=== PATIENT | male | born 1960 | race Caucasian/White ===

== ENCOUNTER 2021-04-09 12:35 | Day surgery (SDC) | payer OTHER ==
[2021-04-08 12:38] LABS: BASOPHILS # (AUTO) 0.1 X10'3 (0-0.2); BASOPHILS % (AUTO) 1.1 % (0-1); EOSINOPHILS # (AUTO) 0.1 X10'3 (0-0.9); EOSINOPHILS % (AUTO) 2.4 % (0-6); LYMPHOCYTES # (AUTO) 1.8 X10'3 (1.1-4.8); LYMPHOCYTES % (AUTO) 29.6 % (21-51); MEAN CORPUSCULAR HEMOGLOBIN 30.6 PG (27.0-31.0); MEAN CORPUSCULAR HGB CONC 35.1 g/dL (33.0-36.5); MEAN CORPUSCULAR VOLUME 87.2 FL (78-98); MEAN PLATELET VOLUME 7.9 FL (7.4-10.4); MONOCYTES # (AUTO) 0.4 X10'3 (0-0.9); MONOCYTES % (AUTO) 7.4 % (2-12); NEUTROPHILS # (AUTO) 3.6 X10'3 (1.8-7.7); NEUTROPHILS % (AUTO) 59.5 % (42-75); PRE OP HEMATOCRIT 42.6 % (42.0-52.0); PRE OP PLATELET COUNT 185 X10'3 (140-440); RED BLOOD COUNT 4.89 X10'6 (4.70-6.10); RED CELL DISTRIBUTION WIDTH 13.4 % (11.5-14.5)
[2021-04-08 12:49] LABS: PRE OP PROTIME 10.6 SECONDS (9.0-12.0)
[2021-04-08 12:58] LABS: ALBUMIN 3.7 G/DL (3.4-5.0); ALKALINE PHOSPHATASE 92 IU/L (46-116); BLOOD UREA NITROGEN 15 MG/DL (7-18); BUN/CREATININE RATIO 19.5 (5.4-32.0); CALCIUM 8.6 MG/DL (8.5-10.1); CHLORIDE 103 MMOL/L (99-107); CREATININE 0.77 MG/DL (0.60-1.10); PRE OP ALT 38 U/L (30-65); PRE OP ANION GAP 10 (8-16); PRE OP AST 26 U/L (10-37); PRE OP BILIRUB, TOTAL 1.8 MG/DL (0.0-1.0); PRE OP GLUCOSE 95 MG/DL (70-104); PRE OP SODIUM 139 MMOL/L (135-145); TOTAL CARBON DIOXIDE 26.4 MMOL/L (24-32); TOTAL PROTEIN 7.5 G/DL (6.4-8.2); eGFR > 90 ML/MIN
[~2021-04-09] VITALS: Ht 185.4 cm; Wt 117.7 kg
[2021-04-09] VITALS (15 sets, daily range): BP systolic 102–166; BP diastolic 61–96
[~2021-04-09 12:35] MED LIST: ATOR10TA87 PO; CERT400S SUBCUT; CETI-90 PO; CETY454C TP; CHOL400T57 PO; CITA20TA28 PO; DOCU100C40 PO; FOLI0.4T14 PO; MULT-1085 PO; PHEN1SUP96 PR; PSYL0.4C2 PO; VITA1TAB37 PO; famotidine 20mg tablet PO ONE; mupirocin 2% nasal ointment 1gm UD NS ONE; ringers solution, lacted 1,000 ML IV SCH
[2021-04-09] MEDS ORDERED: Cefazolin 2GM/100ML NS IVPB 100 ML IV ONE (13:55)
[2021-04-09] MEDS ORDERED: magnesium hydroxide 30ml (MOM) UD suspension PO PRN (14:00)
[2021-04-09] MEDS ORDERED: ondansetron/PF 4mg/2ml inj IV PRN ×2 (14:00→16:30)
[2021-04-09] MEDS ORDERED: diphenhydrAMINE 25mg capsule PO PRN ×2 (14:00)
[2021-04-09] MEDS ORDERED: HYDROmorphone inj. 0.5 MG/0.5 ML DISP.SYRIN IV PRN (14:00)
[2021-04-09] MEDS ORDERED: HYDROmorphone 1 mg/ml syringe IV PRN (14:00)
[2021-04-09] MEDS ORDERED: tranexamic acid inj. 1,100 MG in normal saline 100ml IV soln 100 ML IV ONE (14:00)
[2021-04-09] MEDS ORDERED: ceFAZolin 2gm in dextrose, iso 50 ML IV ONE (14:20)
[2021-04-09] MEDS ORDERED: fentaNYL/PF 50MCG/1 ML 2ML syringe ONE (15:49)
[2021-04-09] MEDS ORDERED: MIDAZolam 1 MG/ML 5ML VIAL ONE (15:59)
[2021-04-09] MEDS ORDERED: ketorolac trometh. 30mg/ml inj. ONE (16:03)
[2021-04-09] MEDS ORDERED: epiNEPHrine 1 mg/ml inj ONE (16:03)
[2021-04-09] MEDS ORDERED: vancomycin 1,000mg inj ONE (16:04)
[2021-04-09] MEDS ORDERED: ROPIVAcaine 0.5% (5mg/ml) 30ml vial ONE (16:04)
[2021-04-09] MEDS ORDERED: propofol inj 20 ML IV ONE ×3 (16:10)
[2021-04-09] MEDS ORDERED: ePHEDrine 50MG/ML INJ. ONE (16:19)
[2021-04-09] MEDS ORDERED: cloNIDine hcl/PF 100mcg/ml inj IJ ONE (16:22)
[2021-04-09] MEDS ORDERED: HYDROmorphone/PF 0.2 MG/ML SYRINGE IV PRN ×2 (16:30)
[2021-04-09] MEDS ORDERED: acetaminophen 1,000mg/100ml IV 100 ML IV PRN (16:30)
[2021-04-09] MEDS ORDERED: proCHLORperazine 10 MG/2 ml inj IV PRN (16:30)
[2021-04-09] MEDS ORDERED: morphine 4 MG/ML inj SYRINge IV PRN (16:30)
[2021-04-09] MEDS ORDERED: morphine 2 MG/ML inj. syringe IV PRN (16:30)
[2021-04-09] MEDS ORDERED: labetalol 20mg/4ml (5mg/ml) syringe IV PRN (16:30)
[2021-04-09] MEDS ORDERED: ringers solution, lacted 1,000 ML IV SCH (16:30)
[2021-04-09] MEDS ORDERED: hydrALAZINE 20mg/ml inj. IV PRN (16:30)
[2021-04-09] MEDS ORDERED: ROPIVAcaine 0.2% (10 MG/5 ML) BOLUS INJECTION ADDCANAL PRN (16:30)
[2021-04-09] MEDS ORDERED: ROPIVAcaine 0.2%/PF PUMP/bolus 545 ML ADDCANAL SCH (16:30)
--- NOTE | 2021-04-09 17:43 | NUR ---
Received from OR via , accompanied by Anesthesiologist DR BECERRA and report given by Anesthesiolgist. AWAKENS TO VOICE. VITALS STABLE. DRESSING DI. CATRINA PAIN. SENSATION AT MID ABD.
--- NOTE | 2021-04-09 18:43 | NUR ---
Report called to receiving nurse. Transferred via BED Belongings . Special Issues communicated to receiving nurse. AWAKE AND ORIENTED. VITALS STABLE. DRESSING DI. CATRINA PAIN. TO SURGICAL RM 246A AT THIS TIME.
--- NOTE | 2021-04-09 19:05 | NUR ---
PATIENT ADMITTED TO ROOM 346A FROM RECOVERY ROOM AFTER LEFT TOTAL KNEE WAS DONE BY DR. OLSON. PLACED COMFORTABLE IN BED. POST OP VITAL SIGNS MONITORED.
[2021-04-09] MEDS: potassium cl 20mEq in 1/2 NS 1,000 ML IV SCH (19:29)
[2021-04-09] MEDS ORDERED: oxyCODONE/APAP 10/325mg tablet PO PRN (20:00)
[2021-04-09] MEDS ORDERED: bisacodyl 10mg suppository rectal RC PRN (20:00)
[2021-04-09] MEDS: oxyCODONE/APAP 10/325mg tablet PO PRN (20:26)
[2021-04-09] MEDS: ascorbic acid 500mg tablet PO SCH (20:27)
[2021-04-09] MEDS: gabapentin 300mg capsule PO SCH (20:27)
[2021-04-09] MEDS ORDERED: docusate sod 100mg capsule PO SCH (21:00)
[2021-04-09] MEDS ORDERED: sennosides 8.6mg tablet PO SCH (21:00)
[2021-04-10] VITALS: BP 100/73
[2021-04-10] MEDS: ceFAZolin 2gm in dextrose, iso 50 ML IV SCH ×2 (00:23→08:26)
[2021-04-10 04:00] VITALS: BP 125/65
[2021-04-10] MEDS: potassium cl 20mEq in 1/2 NS 1,000 ML IV SCH (04:20)
[2021-04-10] MEDS: oxyCODONE/APAP 10/325mg tablet PO PRN ×2 (05:35→12:12)
--- NOTE | 2021-04-10 06:20 | NUR ---
Problems reprioritized. Patient report given, questions answered & plan of care reviewed with MARY ROSS.
--- NOTE | 2021-04-10 06:41 | NUR ---
Patient in room [facility] 346. I have received report from VANDANA Healy and had the opportunity to ask questions and assume patient care.
[2021-04-10 06:50] LABS: BASOPHILS % (AUTO) 0.5 % (0-1); EOSINOPHILS # (AUTO) 0.1 X10'3 (0-0.9); EOSINOPHILS % (AUTO) 1.1 % (0-6); HEMATOCRIT 37.8 % (42.0-52.0); HEMOGLOBIN 13.2 g/dl (14.0-17.9); LYMPHOCYTES % (AUTO) 12.4 % (21-51); MEAN CORPUSCULAR HEMOGLOBIN 30.6 PG (27.0-31.0); MEAN CORPUSCULAR HGB CONC 34.8 g/dL (33.0-36.5); MEAN PLATELET VOLUME 8.5 FL (7.4-10.4); MONOCYTES # (AUTO) 0.8 X10'3 (0-0.9); MONOCYTES % (AUTO) 9.4 % (2-12); NEUTROPHILS # (AUTO) 6.5 X10'3 (1.8-7.7); NEUTROPHILS % (AUTO) 76.6 % (42-75); PLATELET COUNT 173 X10'3 (140-440); RED BLOOD COUNT 4.29 X10'6 (4.70-6.10); RED CELL DISTRIBUTION WIDTH 13.5 % (11.5-14.5); WHITE BLOOD COUNT 8.5 X10'3 (4.5-11.0)
[2021-04-10 06:54] LABS: ANION GAP 9 (8-16); CHLORIDE 102 MMOL/L (99-107); POTASSIUM 4.1 MMOL/L (3.5-5.1); SODIUM 138 MMOL/L (135-145); TOTAL CARBON DIOXIDE 27.2 MMOL/L (24-32)
[2021-04-10 07:00] VITALS: BP 112/66
[2021-04-10] MEDS ORDERED: vitamin B comp w/Vit. C tab 1 TAB TABLET PO SCH (08:00)
[2021-04-10] MEDS ORDERED: multivitamins, therapeutics tablet PO SCH (08:00)
[2021-04-10] MEDS ORDERED: cetirizine 10mg tablet PO SCH (08:00)
[2021-04-10] MEDS ORDERED: citalopram 20mg tablet PO SCH (08:00)
[2021-04-10] MEDS: ascorbic acid 500mg tablet PO SCH (08:27)
[2021-04-10] MEDS: gabapentin 300mg capsule PO SCH ×2 (08:28→14:15)
[2021-04-10] MEDS ORDERED: aspirin 325mg tablet PO SCH (08:30)
[2021-04-10 12:00] VITALS: BP 116/64
--- NOTE | 2021-04-10 14:53 | NUR ---
Pt discharged to home with all belongings, in private vehicle, accompanied by . Discharge instructions and medications reviewed. 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 Pt instructed to follow up with Dr Mathis and to contact his office with any concerns. Pt instructed to remove HAROON dressing with battery pack dies, as well as ONQ ball when empty. Pt and state understanding and willingness to comply with all discharge instructions. IV DC'd, cannula intact. Pt escorted to front lobby via wheelchair by student RN.
[2021-04-10] MEDS ORDERED: acetaminophen 325mg tablet PO PRN (20:00)
[2021-04-10] MEDS ORDERED: celeCOXIB 100mg capsule PO SCH (20:00)
== END 2021-04-10 14:53 | disposition home or self-care (01) ==
LOC: PAS 12:35 → UNDOADMIN 12:37 → PAS IN 12:37 → EDSTATUS 15:30 → SUR 3N 19:10 → PAS 04-10 14:53
PROVIDERS: ATTEND Orthopaedic Surgery
DX: M17.12 Unilateral primary osteoarthritis, left knee (principal); M16.12 Unilateral primary osteoarthritis, left hip; G47.33 Obstructive sleep apnea (adult) (pediatric); F41.9 Anxiety disorder, unspecified; L40.50 Arthropathic psoriasis, unspecified; G89.18 Other acute postprocedural pain; Z87.891 Personal history of nicotine dependence; Z72.89 Other problems related to lifestyle; Z96.642 Presence of left artificial hip joint; Z91.030 Bee allergy status; Z91.013 Allergy to seafood; Z79.899 Other long term (current) drug therapy; Z79.01 Long term (current) use of anticoagulants
CPT/HCPCS: 27447; 36415; 64448; 73560; 76937; 80051; 80053; 82948; 85025; 85610; 85730; 86885; 86900; 86901; 87081; 87635; 97110; 97116; 97162; 97530; C1713; C1776; C9803; J0171; J0735; J1885; J2250; J2704; J2795; J3010; J3370; J7120; Z7506; Z7508; Z7512; 76942; A4215; A6449; A7000; G0378; J3480

== ENCOUNTER 2021-09-21 09:08 | Inpatient (IN) | payer OTHER ==
[2021-09-15 16:40] LABS: ALBUMIN 3.7 G/DL (3.4-5.0); ALKALINE PHOSPHATASE 91 IU/L (46-116); BLOOD UREA NITROGEN 19 MG/DL (7-18); BUN/CREATININE RATIO 26.4 (5.4-32.0); CALCIUM 8.6 MG/DL (8.5-10.1); CHLORIDE 103 MMOL/L (99-107); CREATININE 0.72 MG/DL (0.60-1.10); PRE OP ALT 37 U/L (30-65); PRE OP ANION GAP 11 (8-16); PRE OP AST 27 U/L (10-37); PRE OP BILIRUB, TOTAL 1.3 MG/DL (0.0-1.0); PRE OP GLUCOSE 92 MG/DL (70-104); PRE OP POTASSIUM 3.8 MMOL/L (3.4-5.1); PRE OP SODIUM 139 MMOL/L (135-145); TOTAL CARBON DIOXIDE 24.6 MMOL/L (24-32); TOTAL PROTEIN 7.5 G/DL (6.4-8.2); eGFR > 90 ML/MIN
[2021-09-21] VITALS (16 sets, daily range): BP systolic 112–150; BP diastolic 50–88
[~2021-09-21] VITALS: Ht 185.4 cm; Wt 120.7 kg
[2021-09-21] MEDS: potassium cl 20mEq in 1/2 NS 1,000 ML IV SCH ×3 (06:10→22:10)
[~2021-09-21 09:08] MED LIST changes: -CETI-90 PO; -CETY454C TP; +HYDROmorphone 1 mg/ml syringe IV PRN; +HYDROmorphone inj. 0.5 MG/0.5 ML DISP.SYRIN IV PRN; +OMEG-133 PO; -PHEN1SUP96 PR; +acetaminophen 325mg tablet PO ONE; +acetaminophen 325mg tablet PO PRN; +bisacodyl 10mg suppository rectal RC PRN; +ceFAZolin inj. 3,000 MG in normal saline 100ml IV soln 100 ML IV ONE; +celeCOXIB 100mg capsule PO ONE; +diphenhydrAMINE 25mg capsule PO PRN; +gabapentin 300mg capsule PO ONE; +magnesium hydroxide 30ml (MOM) UD suspension PO PRN; +metoclopramide 5 mg/ml inj IV ONE; -mupirocin 2% nasal ointment 1gm UD NS ONE; +naloxone 0.4 mg/ml inj IV PRN; +ondansetron/PF 4mg/2ml inj IV PRN; +oxyCODONE SR 10mg (sust. release) tab -2 tabs (20mg) PO ONE; +oxyCODONE/APAP 10/325mg tablet PO PRN; +tranexamic acid inj. 1,000 MG in 0.7% saline 100 ML PMX IV ONE; +vancomycin 1,500 MG in NS 300ml IV soln IV ONE
--- NOTE | 2021-09-21 11:00 | NUR ---
PRE-OP INTERVIEW AND ASSESSMENT. PT DECLINED HIBICLENS X5 DAYS PRE-OP R/T HX OF PSORIASIS, STATES HE BREAKS OUT ALL OVER IF USED DAILY. DR OLSON AWARE. COMPLETED MUPIROCIN OINTMENT PRE-OP X 5 DAYS. PT AND WATCHED THE DVD. [facility]'S INTACT TO ALL EXT.
[2021-09-21 11:45] LABS: BASOPHILS % (AUTO) 0.8 % (0-1); EOSINOPHILS # (AUTO) 0.2 X10'3 (0-0.9); LYMPHOCYTES # (AUTO) 1.7 X10'3 (1.1-4.8); LYMPHOCYTES % (AUTO) 30.5 % (21-51); MEAN CORPUSCULAR HEMOGLOBIN 29.5 PG (27.0-31.0); MEAN CORPUSCULAR HGB CONC 34.5 g/dL (33.0-36.5); MEAN CORPUSCULAR VOLUME 85.5 FL (78-98); MEAN PLATELET VOLUME 7.9 FL (7.4-10.4); MONOCYTES # (AUTO) 0.4 X10'3 (0-0.9); MONOCYTES % (AUTO) 7.9 % (2-12); NEUTROPHILS # (AUTO) 3.2 X10'3 (1.8-7.7); NEUTROPHILS % (AUTO) 57.8 % (42-75); PRE OP HEMATOCRIT 40.1 % (42.0-52.0); PRE OP HEMOGLOBIN 13.8 g/dL (14.0-17.9); PRE OP PLATELET COUNT 186 X10'3 (140-440); RED BLOOD COUNT 4.69 X10'6 (4.70-6.10); RED CELL DISTRIBUTION WIDTH 14.1 % (11.5-14.5)
[2021-09-21] MEDS ORDERED: ketorolac trometh. 30mg/ml inj. ONE (11:48)
[2021-09-21] MEDS ORDERED: cloNIDine hcl/PF 100mcg/ml inj ONE (11:48)
[2021-09-21] MEDS ORDERED: epiNEPHrine 1 mg/ml inj ONE (11:48)
[2021-09-21] MEDS ORDERED: vancomycin 1,000mg inj ONE (11:48)
[2021-09-21] MEDS ORDERED: ROPIVAcaine 0.5% (5mg/ml) 30ml vial ONE ×2 (11:49→12:44)
[2021-09-21] MEDS ORDERED: FENTANYL CITRATE/PF 50 MCG/1 ML VIAL ONE (12:21)
[2021-09-21] MEDS ORDERED: MIDAZolam 1 MG/ML 5ML VIAL ONE (12:25)
[2021-09-21] MEDS ORDERED: ROPIVAcaine 0.2% (10 MG/5 ML) BOLUS INJECTION ADDCANAL PRN (13:45)
[2021-09-21] MEDS ORDERED: proCHLORperazine 10 MG/2 ml inj IV PRN (13:45)
[2021-09-21] MEDS ORDERED: morphine 4 MG/ML inj SYRINge IV PRN (13:45)
[2021-09-21] MEDS ORDERED: meperidine/PF 25mg/ml syringe IV PRN ×3 (13:45)
[2021-09-21] MEDS ORDERED: ROPIVAcaine 0.2%/PF PUMP/bolus 545 ML ADDCANAL SCH (13:45)
[2021-09-21] MEDS ORDERED: ondansetron/PF 4mg/2ml inj IV PRN (13:45)
[2021-09-21] MEDS ORDERED: ringers solution, lacted 1,000 ML IV SCH (13:45)
[2021-09-21] MEDS ORDERED: morphine 2 MG/ML inj. syringe IV PRN (13:45)
--- NOTE | 2021-09-21 14:38 | NUR ---
Received from OR via SURGICAL BED , accompanied by Anesthesiologist MELI and report given by Anesthesiolgist. RIGHT KNEE WRAP PRESENT WITH POWDER PACK PRESENT. HAROON VAC IN PLACE TO RIGHT KNEE, + DORSALIS PEDIS. SCDS DONNED. 20G PIV IN LEFT UE RUNNING LR AT 100. Addendum: 09/21/21 at 1453 by Ted Zimmerman RN, RN Amended: Links added.
--- NOTE | 2021-09-21 15:38 | NUR ---
PATIENT HAS MET ALL CRITERIA FOR TRANSFER TO THE SURGICAL/[facility]/PCU/ORTHO/ICU FLOOR. VSS. DRESSINGS INTACT. BED LOW, CALL LIGHT PRESENT AND 2 RAILS UP. RN PRESENT TO ACCEPT CARE OF PATIENT AND REPORT HAS BEEN CALLED. PALL QUESTIONS ANSWERED TO ACCEPTING VANDANA FLEMING. WHO WAS PRESENT TO ACCEPT CARE. 2 BAGS AND A CPAP DELIVERED WELL TO THE ROOM. Addendum: 09/21/21 at 1540 by Ted Zimmerman RN, RN Amended: Links added.
[2021-09-21] MEDS ORDERED: tranexamic acid inj. 1,200 MG in normal saline 100ml IV soln 100 ML IV ONE (16:00)
[2021-09-21] MEDS: ceFAZolin 2gm in dextrose, iso 50 ML IV SCH (16:58)
--- NOTE | 2021-09-21 18:25 | NUR ---
Patient in room ORTH[facility] 4008. I have received report from Joaquina ROSS and had the opportunity to ask questions and assume patient care.
--- NOTE | 2021-09-21 18:26 | NUR ---
Report given to VANDANA Powell
[2021-09-21] MEDS ORDERED: sennosides 8.6mg tablet PO SCH (21:00)
[2021-09-21] MEDS: gabapentin 300mg capsule PO SCH (21:20)
[2021-09-21] MEDS: ascorbic acid 500mg tablet PO SCH (21:20)
[2021-09-22] MEDS: ceFAZolin 2gm in dextrose, iso 50 ML IV SCH (00:06)
[2021-09-22 02:00] VITALS: BP 99/58
[2021-09-22 06:00] VITALS: BP 138/80
[2021-09-22] MEDS: potassium cl 20mEq in 1/2 NS 1,000 ML IV SCH (06:10)
[2021-09-22 06:14] LABS: BASOPHILS % (AUTO) 0.4 % (0-1); EOSINOPHILS # (AUTO) 0.2 X10'3 (0-0.9); EOSINOPHILS % (AUTO) 2.1 % (0-6); HEMATOCRIT 36.3 % (42.0-52.0); HEMOGLOBIN 12.4 g/dl (14.0-17.9); LYMPHOCYTES # (AUTO) 1.1 X10'3 (1.1-4.8); LYMPHOCYTES % (AUTO) 12.6 % (21-51); MEAN CORPUSCULAR HEMOGLOBIN 28.8 PG (27.0-31.0); MEAN CORPUSCULAR VOLUME 84.6 FL (78-98); MEAN PLATELET VOLUME 8.3 FL (7.4-10.4); MONOCYTES # (AUTO) 0.9 X10'3 (0-0.9); NEUTROPHILS # (AUTO) 6.8 X10'3 (1.8-7.7); NEUTROPHILS % (AUTO) 74.9 % (42-75); PLATELET COUNT 189 X10'3 (140-440); RED CELL DISTRIBUTION WIDTH 14.1 % (11.5-14.5); WHITE BLOOD COUNT 9.1 X10'3 (4.5-11.0)
[2021-09-22 06:29] LABS: ANION GAP 7 (8-16); CHLORIDE 104 MMOL/L (99-107); POTASSIUM 3.9 MMOL/L (3.5-5.1); SODIUM 138 MMOL/L (135-145); TOTAL CARBON DIOXIDE 27.5 MMOL/L (24-32)
--- NOTE | 2021-09-22 06:36 | NUR ---
Problems reprioritized. Patient report given, questions answered & plan of care reviewed with Arcelia ROSS.
[2021-09-22] MEDS: gabapentin 300mg capsule PO SCH (07:50)
[2021-09-22] MEDS: ascorbic acid 500mg tablet PO SCH (07:50)
[2021-09-22] MEDS ORDERED: multivitamins, therapeutics tablet PO SCH (08:00)
[2021-09-22] MEDS ORDERED: aspirin 325mg tablet PO SCH (08:30)
[2021-09-22 10:00] VITALS: BP 130/73
--- NOTE | 2021-09-22 12:33 | NUR ---
Joint Surgery Consult: Pt s/p R knee surgery this admit per EMR. Pt/SO seen by HEAVEN for written/verbal high protein ed w/ RD contact information provided. Pt/SO encouraged to contact dietitian's office if further questions/concerns. Addendum: 09/22/21 at [address] Amended: Links added.
[2021-09-22] MEDS ORDERED: celeCOXIB 100mg capsule PO SCH (20:00)
== END 2021-09-22 11:20 | disposition home or self-care (01) | DRG 470 ==
LOC: PAS 09:08 → ORTHO 4S 16:15
PROVIDERS: ADMIT Orthopaedic Surgery; ATTEND Orthopaedic Surgery
PROC: 3E0T3BZ Introduction of Anesthetic Agent into Peripheral Nerves and Plexi, Percutaneous Approach (ICD-10-PCS; 2021-09-21)
PROC: 3E0T33Z Introduction of Anti-inflammatory into Peripheral Nerves and Plexi, Percutaneous Approach (ICD-10-PCS; 2021-09-21)
PROC: 0SRC069 Replacement of Right Knee Joint with Oxidized Zirconium on Polyethylene Synthetic Substitute, Cemented, Open Approach (ICD-10-PCS; principal; 2021-09-21 12:10)
DX: M17.11 Unilateral primary osteoarthritis, right knee (principal); Z88.8 Allergy status to other drugs, medicaments and biological substances; Z91.030 Bee allergy status; Z79.899 Other long term (current) drug therapy
CPT/HCPCS: 36415; 71046; 73560; 80051; 80053; 82948; 85025; 86885; 86900; 86901; 86920; 87081; 97110; 97116; 97161; A4215; A7000; C1713; C1776; G0378; J0171; J0690; J0735; J1885; J2250; J2765; J2795; J3010; J3370; J3480; J3490; J7040; J7120; U0003; U0005